=== PATIENT | female | born 1955 | race Caucasian/White ===

== ENCOUNTER 2018-10-06 06:14 | Day surgery (SDC) | payer OTHER, BC ==
[2018-10-04 16:25] VITALS: BMI 32.1
[2018-10-06] MEDS ORDERED: LIDOCAINE 1%-EPI 1:100,000 30 ML MDV IJ ONE (07:44)
[2018-10-06] MEDS ORDERED: BUPIVACAINE HCL/PF 0.5% (5MG/ML) 10 ML VIAL ONE (07:44)
[2018-10-06] MEDS ORDERED: MIDAZOLAM HCL 2 MG/2 ML SINGLE DOSE VIAL ONE (07:55)
[2018-10-06] MEDS ORDERED: PROPOFOL 20 ML ONE (07:56)
--- NOTE | 2018-10-06 08:04 | HP ---
[facility] - Chief Complaint History Source: Patient - Past Medical History Allergies/Adverse Reactions: Allergies Allergy/AdvReac Type Severity Reaction Status Date / Time No Known Drug Allergies Allergy Verified 10/06/18 07:11 - Current Medications Current Medications: Home Medications Medication Instructions Recorded NK [No Known Home Medication] 10/04/18 [facility] Physical Exam - Physical Examination Vital Signs: Vital Signs Period Temp Pulse Resp BP Sys/Orellana Pulse Ox Last 24 Hr 98.3 F 63 18 134/75 100 Extremities: Other (+ joint line tenderness r knee) Satellite Impression/Plan - Impression/Plan Impression: INETRNAL DERANGEMENT R KNEE Operative Procedure: ARTHROSCOPY R KNEE Date to be Performed: 10/06/18
[2018-10-06] MEDS ORDERED: LIDOCAINE 1%/EPI 1:100000 (50 ML MULTI DOSE VIAL) NR ONE (08:29)
[2018-10-06] MEDS ORDERED: BUPIVACAINE HCL/PF (5 MG/ML) 30 ML VIAL IJ ONE (08:29)
[2018-10-06] MEDS ORDERED: DEXAMETHASONE SOD PHOSPHATE 4 MG/1 ML VIAL ONE (08:44)
[2018-10-06] MEDS ORDERED: KETOROLAC TROMETHAMINE 30 MG/1 ML VIAL ONE (08:44)
--- NOTE | 2018-10-06 08:50 | OP ---
Operative Note - Note: Operative Date: 10/06/18 ([facility]) Pre-Operative Diagnosis: right knee internal derangement Operation: right knee arthroscopy PMM, debridement chondroplasty Post-Operative Diagnosis: Same as Pre-op Surgeon: Terence Vegas Anesthesia: General, Local Specimens Removed: shavings Estimated Blood Loss (mls): 5 Operative Report Dictated: Yes
[2018-10-06] MEDS ORDERED: ONDANSETRON 4 MG/2 ML VIAL IVPUSH PRN (09:01)
[2018-10-06] MEDS ORDERED: oxyCODONE HCL 5 MG TABLET PO PRN (09:01)
[2018-10-06] MEDS ORDERED: PROMETHAZINE HCL 25 MG/1 ML VIAL IVPUSH PRN (09:01)
[2018-10-06] MEDS ORDERED: LACTATED RINGERS SOLUTION 1,000 ML IV SCH (09:15)
--- NOTE | 2018-10-06 09:55 | OP ---
DATE OF OPERATION: 10/06/2018 PREOPERATIVE DIAGNOSIS: Internal derangement, right knee. POSTOPERATIVE DIAGNOSIS: Internal derangement, right knee. PROCEDURE: Arthroscopy, right knee, partial medial meniscectomy and chondroplasty of the trochlea. SURGICAL ATTENDING: Terence Vegas MD ANESTHESIA: LMA. CLOSURE: Nylon 4-0. COMPLICATIONS: None. CONDITION: To recovery room in stable condition. DESCRIPTION OF OPERATIVE PROCEDURE: Patient taken to the operating room on October 06, 2018. General anesthesia with LMA was administered by the anesthesiologist. Right lower extremity was prepped and draped in the usual sterile fashion. Medial and lateral infrapatellar portal sites were made with a 15 blade followed by a blunt trocar after they were infiltrated with 1% lidocaine. The scope was placed in the lateral infrapatellar portal and up into the suprapatellar pouch. The knee was inflated with a cocktail of 10 mL of 1% Xylocaine, 10 mL of 0.5% Marcaine and 20 mL of arthroscopic saline. After allowing the anesthetic to sit in the knee for a few minutes the procedure was performed. Both medial and lateral gutters were visualized to be clean. The undersurface of the patella was found to be intact. The trochlea was found to have some grade 3 changes. Any loose articular cartilage was debrided using a shaver. With valgus stress on the knee the medial compartment was entered. The medial meniscus was visualized and probed and found to have a posterior horn tear. This was debrided back to smooth stable meniscal tissue using a meniscal biter and arthroscopic shaver. The medial femoral condyle was run and found to be basically intact as was the medial tibial plateau. At 90 degrees the ACL was visualized and probed and found to be intact. In the figure-4 position the lateral compartment was entered. The lateral meniscus was visualized and probed and found to be intact. The lateral femoral condyle was run and found to be intact as was the lateral tibial plateau. The knee was irrigated with copious amounts of irrigation. The portals were closed with 4-0 nylon. Prior to closure 20 mL of 0.5% Marcaine was infused into the knee through the scope trocar. A sterile pressure dressing was placed over the knee. Patient awakened from anesthesia and transferred to the recovery room in stable condition. TERENCE VEGAS M.D. OMERO/[id number]
[2018-10-06] MEDS ORDERED: oxyCODONE HCL 5 MG TABLET ONE (12:13)
[2018-10-06] MEDS ORDERED: oxyCODONE HCL 5 MG TABLET PO ONE (12:15)
[2018-10-06 14:00] VITALS: BP 130/71; PULSE 67; TEMP 97.6
--- NOTE | 2018-10-09 14:35 | PATH ---
Surgical Pathology Report Patient Name: HUSSEIN TATE [facility]. Rec. #: [id number] /Age/Gender: 1955 (Age: 63) / F Account: [id number] Location: [facility] SURGICAL Taken: 10/06/2018 Received: 10/06/2018 Reported: 10/09/2018 Physicians: Terence Vegas M.D. Specimen(s) Received RIGHT KNEE SHAVINGS Clinical History Internal derangement Final Diagnosis KNEE SHAVINGS, RIGHT, ARTHROSCOPY: FRAGMENTS OF CARTILAGE, DENSE FIBROCONNECTIVE TISSUE, ADIPOSE TISSUE, AND SYNOVIUM. Electronically Signed Radha Pressley M.D. Gross Description Received in formalin, labeled "right knee shavings," is a 4.5 x 4.0 x 0.4 cm. aggregate of sim-yellow soft tissue fragments. A sales representative aircraft portion is submitted in one cassette. /10/06/2018 saudi10/06/2018
== END 2018-10-06 13:05 | disposition home or self-care (01) ==
LOC: JASU-SURG 06:14
PROVIDERS: ATTEND Orthopaedic Surgery
PROC: 0SBC4ZZ Excision of Right Knee Joint, Percutaneous Endoscopic Approach (ICD-10-PCS; principal; 2018-10-06 08:00)
DX: M23.221 Derangement of posterior horn of medial meniscus due to old tear or injury, right knee (principal)
CPT/HCPCS: 88304-TC; 94760